=== PATIENT | female | born 1950 ===

== ENCOUNTER 2022-06-04 22:00 | Emergency (ER) | payer OTHER ==
[~2022-06-04] VITALS: Ht 157.5 cm; Wt 72.6 kg
== END 2022-06-04 23:32 | disposition home or self-care (01) ==
LOC: ER 22:00
DX: S09.90XA Unspecified injury of head, initial encounter (principal); W19.XXXA Unspecified fall, initial encounter; Y93.9 Activity, unspecified; Y92.9 Unspecified place or not applicable